=== PATIENT | female | born 1975 | race Two or more races ===

== ENCOUNTER 2016-12-25 21:44 | Emergency (ER) | payer SELFPAY ==
[~2016-12-25] VITALS: Ht 154.9 cm; Wt 53.5 kg
--- NOTE | 2016-12-25 22:25 | PHYS DOC ---
Adult General Chief Complaint Chief Complaint: OTHER COMPLAINTS HPI HPI Patient is a 41 year old male presents emergency department stating that she has lumps throughout the right side of her head. She is also stating that she has having a headache with ear pain and discomfort. She is also stated that she' s had frontal and maxillary sinus pain and discomfort on the right as well. She states that she's been lightheaded and dizzy. She states that this occurs without any warning. She may be standing and walking without dizziness starts. Patient denies any nausea or vomiting. She also states that she's been having some numbness and tingling in the right side of her head. With a lumps occur. Patient states that she did hit her head about a week ago on the kitchen cabinet. She denies any loss of consciousness at that time. Review of Systems Review of Systems Constitutional: Denies fever or chills [] Eyes: Denies change in visual acuity, redness, or eye pain [] HENT: Denies nasal congestion or sore throat [] Respiratory: Denies cough or shortness of breath [] Cardiovascular: No additional information not addressed in HPI [] GI: Denies abdominal pain, nausea, vomiting, bloody stools or diarrhea [] : Denies dysuria or hematuria [] Musculoskeletal: Denies back pain or joint pain [] Integument: Denies rash or skin lesions [] Neurologic: Denies headache, focal weakness or sensory changes [] Endocrine: Denies polyuria or polydipsia [] Current Medications Current Medications Current Medications Medications (Trade) Dose Ordered Sig/Dana Start Time Stop Time Status Last Admin Dose Admin Potassium Chloride (Klor-Con) 40 meq 1X ONCE 12/26/16 00:00 12/26/16 00:01 UNV Physical Exam Physical Exam Constitutional: Well developed, well nourished, no acute distress, non-toxic appearance. [] HENT: Normocephalic, atraumatic, bilateral external ears normal, oropharynx moist, no oral exudates, nose normal. Bilateral tympanic membranes appear to be normal. Throat without erythematous drainage discharge or redness. Patient was noted to have soft palate old lumps noted on the right side of the head. Eyes: PERRLA, EOMI, conjunctiva normal, no discharge. [] Neck: Normal range of motion, no tenderness, supple, no stridor. [] Cardiovascular:Heart rate regular rhythm, no murmur [] Lungs & Thorax: Bilateral breath sounds clear to auscultation [] Skin: Warm, dry, no erythema, no rash. [] Back: No tenderness Extremities: No tenderness, no cyanosis, no clubbing, ROM intact, no edema. [] Neurologic: Alert and oriented X 3, normal motor function, normal sensory function, no focal deficits noted. 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 Patient is able to move arms and legs with purposeful movement. Patient able to ambulate with good steady gait. Psychologic: Affect normal, judgement normal, mood normal. [] Current Patient Data Vital Signs Vital Signs Date Time Temp Pulse Resp B/P (MAP) Pulse Ox O2 Delivery O2 Flow Rate FiO2 12/25/16 22:23 98.3 96 16 119/72 (88) 98 Room Air 98.3 Lab Values Laboratory Tests Test 12/25/16 22:19 12/25/16 22:30 12/25/16 23:00 POC Urine HCG, Qualitative Hcg negative (Negative) White Blood Count 7.8 x10^3/uL (4.0-11.0) Red Blood Count 4.11 x10^6/uL (3.50-5.40) Hemoglobin 12.1 g/dL (12.0-15.5) Hematocrit 36.4 % (36.0-47.0) Mean Corpuscular Volume 89 fL (79-100) Mean Corpuscular Hemoglobin 30 pg (25-35) Mean Corpuscular Hemoglobin Concent 33 g/dL (31-37) Red Cell Distribution Width 14.6 % (11.5-14.5) H Platelet Count 239 x10^3/uL (140-400) Neutrophils (%) (Auto) 49 % (31-73) Lymphocytes (%) (Auto) 40 % (24-48) Monocytes (%) (Auto) 8 % (0-9) Eosinophils (%) (Auto) 2 % (0-3) Basophils (%) (Auto) 1 % (0-3) Neutrophils # (Auto) 3.8 x10^3uL (1.8-7.7) Lymphocytes # (Auto) 3.2 x10^3/uL (1.0-4.8) Monocytes # (Auto) 0.6 x10^3/uL (0.0-1.1) Eosinophils # (Auto) 0.2 x10^3/uL (0.0-0.7) Basophils # (Auto) 0.0 x10^3/uL (0.0-0.2) Sodium Level 144 mmol/L (136-145) Potassium Level 3.3 mmol/L (3.5-5.1) L Chloride Level 108 mmol/L (98-107) H Carbon Dioxide Level 27 mmol/L (21-32) Anion Gap 9 (6-14) Blood Urea Nitrogen 13 mg/dL (7-20) Creatinine 0.7 mg/dL (0.6-1.0) Estimated GFR (Cockcroft-Gault) 92.7 BUN/Creatinine Ratio 19 (6-20) Glucose Level 108 mg/dL (70-99) H Calcium Level 8.2 mg/dL (8.5-10.1) L Total Bilirubin 0.2 mg/dL (0.2-1.0) Aspartate Amino Transferase (AST) 11 U/L (15-37) L Alanine Aminotransferase (ALT) 21 U/L (14-59) Alkaline Phosphatase 49 U/L (46-116) Total Protein 6.8 g/dL (6.4-8.2) Albumin 3.4 g/dL (3.4-5.0) Albumin/Globulin Ratio 1.0 (1.0-1.7) Urine Collection Type Unknown Urine Color Yellow Urine Clarity Turbid Urine pH 6.0 Urine Specific [place] >=1.030 Urine Protein Negative mg/dL (NEG-TRACE) Urine Glucose (UA) Negative mg/dL (NEG) Urine Ketones (Stick) Negative mg/dL (NEG) Urine Blood Small (NEG) Urine Nitrite Positive (NEG) Urine Bilirubin Small (NEG) Urine Urobilinogen Dipstick 1.0 mg/dL (0.2 mg/dL) Urine Leukocyte Esterase Moderate (NEG) Urine RBC 3-5 /HPF (0-2) Urine WBC 20-40 /HPF (0-4) Urine Squamous Epithelial Cells Many /LPF Urine Bacteria Mod /HPF (0-FEW) Urine Mucus Marked /LPF Laboratory Tests 12/25/16 22:30 Laboratory Tests 12/25/16 22:30 EKG EKG EKG completed with a heart rate of 85 sinus rhythm noted no ectopy no STEMI noted per Dr. Valentin. [] Radiology/Procedures Radiology/Procedures [][facility] [address] [place] [address] IMAGING REPORT Signed PATIENT: MIKAEL ANGELA ACCOUNT: [id number] : 1975 LOCATION: ER AGE: 41 SEX: F EXAM STATUS: REG ER ORD. PHYSICIAN: DOT STOKES APRN REASON: lumps in the head, headache dizziness PROCEDURE: CT HEAD WO CONTRAST PROCEDURE CT head without contrast HISTORY Lumps in the head, headache, dizziness, hit head 1 week ago TECHNIQUE Exposure: One or more of the following individualized dose reduction techniques were utilized for this exam: 1. Automated exposure control. 2. Adjustment of the mA and/or kV according to patient size. 3. Use of iterative reconstruction technique. [address] imaging skullbase to vertex COMPARISON No prior FINDINGS no intracranial hemorrhage, mass, hydrocephalus, extra-axial fluid collections or infarction. Orbits, paranasal sinuses, mastoids and bones are unremarkable. IMPRESSION No acute intracranial CT abnormality. Electronically signed by: Tg Haq MD (December 25, 2016 23:38:08) DICTATED and SIGNED BY: TG HQA MD DATE: 12/25/16 2338 CC: DOT STOKES APRN; NON,STAFF; UNKNOWN PCP NAME ~ Course & Med Decision Making Course & Med Decision Making Pertinent Labs and Imaging studies reviewed. (See chart for details) Patient's potassium was 3.3 she'll be provided with potassium supplement here in the emergency department. Patient's urine was positive for urinary tract infection patient will be placed on Macrobid at discharge. Patient's CT scan was negative for any abnormalities per radiology. Orthostatics were negative. Patient will be discharged home in stable condition with recommendations to follow-up with primary care physician in the next 2-3 days in regards to the areas on her head. Patient was instructed to drink plenty of fluids such as water and cranberry juice. Avoid cranberry juice cocktail carbonate beverages citrus fruits alcohol and caffeine as these are considered irritants to the bladder. Patient was provided with signs and symptoms to return back to the emergency department. [] Dragon Disclaimer Dragon Disclaimer This electronic medical record was generated, in whole or in part, using a voice recognition dictation system. Departure Departure Impression: Primary Impression: UTI (urinary tract infection) Additional Impression: Hypokalemia Disposition: HOME, SELF-CARE Condition: STABLE Patient Instructions: Hypokalemia-Brief, Urinary Tract Infection, [id number] Additional Instructions: Activity as tolerated. Medications as prescribed. Drink plenty of fluids such as water and cranberry juice. Avoid cranberry juice cocktail, carbonate beverages, caffeine, citrus fruits and alcohol as these are considered irritants to the bladder. All up with her primary care physician in the next 2-3 days in regards to repeat potassium level and to follow-up in regards to the wants on your head. Return back to emergency prior signs symptoms of become worse. Scripts Nitrofurantoin Monohyd/M-Cryst (MACROBID 100 MG CAPSULE) 100 Mg Capsule 1 CAP PO BID, #14 CAP Prov: DOT STOKES APRN 12/25/16 Problem Qualifiers DOT STOKES APRN December 25, 2016 22:25
[2016-12-25 22:40] LABS: BASO % 1 % (0-3); EOS % 2 % (0-3); HEMATOCRIT 36.4 % (36.0-47.0); HEMOGLOBIN 12.1 g/dL (12.0-15.5); LYMPH # 3.2 x10^3/uL (1.0-4.8); LYMPH % 40 % (24-48); MEAN CORPUSCULAR HEMOGLOBIN 30 pg (25-35); MEAN CORPUSCULAR HGB CONC 33 g/dL (31-37); MEAN CORPUSCULAR VOLUME 89 fL (79-100); MONO % 8 % (0-9); NEUT % 49 % (31-73); PLATELET COUNT 239 x10^3/uL (140-400); RED BLOOD COUNT 4.11 x10^6/uL (3.50-5.40); RED CELL DISTRIBUTION WIDTH 14.6 % (11.5-14.5); WHITE BLOOD COUNT 7.8 x10^3/uL (4.0-11.0)
[2016-12-25 22:49] LABS: CALCIUM 8.2 mg/dL (8.5-10.1); CREATININE 0.7 mg/dL (0.6-1.0)
[2016-12-25 22:50] LABS: GFR 92.7; POTASSIUM 3.3 mmol/L (3.5-5.1)
[2016-12-25 22:56] LABS: ALBUMIN 3.4 g/dL (3.4-5.0); TOTAL BILIRUBIN 0.2 mg/dL (0.2-1.0); TOTAL PROTEIN 6.8 g/dL (6.4-8.2)
[2016-12-25 23:18] LABS: BILIRUBIN,URINE SMALL (NEG); GLUCOSE,URINE NEGATIVE (NEG); NITRITE,URINE POSITIVE (NEG); PROTEIN,URINE NEGATIVE (NEG-TRACE)
[2016-12-25 23:29] LABS: BACTERIA,URINE MOD /HPF (0-FEW); SQUAMOUS EPITHELIAL CELL,UR MANY /LPF; WBC,URINE 20-40 /HPF (0-4)
--- NOTE | 2016-12-25 23:39 | RAD ---
PROCEDURE CT head without contrast HISTORY Lumps in the head, headache, dizziness, hit head 1 week ago TECHNIQUE Exposure: One or more of the following individualized dose reduction techniques were utilized for this exam: 1. Automated exposure control. 2. Adjustment of the mA and/or kV according to patient size. 3. Use of iterative reconstruction technique. [address] imaging skullbase to vertex COMPARISON No prior FINDINGS no intracranial hemorrhage, mass, hydrocephalus, extra-axial fluid collections or infarction. Orbits, paranasal sinuses, mastoids and bones are unremarkable. IMPRESSION No acute intracranial CT abnormality. Electronically signed by: Yobany Haq MD (December 25, 2016 23:38:08)
[2016-12-25 23:55] VITALS: BP 115/69
[2016-12-25] MEDS ORDERED: NITR100C62 PO (23:56)
[2016-12-26] MEDS ORDERED: IBUPROFEN 800 MG TABLET. PO ONE (00:15)
[2016-12-26] MEDS ORDERED: POTASSIUM CHLORIDE 20 MEQ TABLET.ER. PO ONE (00:15)
--- NOTE | 2016-12-26 06:11 | EKG ---
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
== END 2016-12-26 00:28 | disposition home or self-care (01) ==
LOC: ER 21:44
DX: N39.0 Urinary tract infection, site not specified (principal); E87.6 Hypokalemia; R42 Dizziness and giddiness; R51 Headache; H92.09 Otalgia, unspecified ear
CPT/HCPCS: 36415; 70450; 80053; 81001; 81025; 85027; 93005; 99285-25